=== PATIENT | female | born 1950 | race Caucasian/White ===

== ENCOUNTER 2019-04-19 06:59 | Day surgery (SDC) | payer MEDICARE ==
[2019-04-19] MEDS ORDERED: Lactated Ringers 1,000 ML IV SCH (08:00)
[2019-04-19] MEDS ORDERED: Propofol 200 MG/20 ML SDV ONE (08:03)
[2019-04-19] MEDS ORDERED: fentaNYL 100 MCG/2 ML SDV ONE (08:03)
[2019-04-19] MEDS ORDERED: Midazolam 1 MG/ML 2 ML SDV ONE (08:03)
--- NOTE | 2019-04-19 11:44 | OR ---
DATE OF PROCEDURE: 04/19/2019 PREOPERATIVE DIAGNOSIS: History of tubular adenomas. POSTOPERATIVE DIAGNOSES: Medium sized hepatic flexure polyp, small transverse colon polyp, history of tubular adenomas. PROCEDURE: Colonoscopy to the cecum with snare cautery polypectomy of hepatic flexure polyp and biopsy resection of small transverse colon polyp. ANESTHESIA: IV anesthesia with monitored anesthesia care. INDICATION: This 69-year-old white female is referred for a colonoscopy because of a history of tubular adenoma. She says her last colonoscopic exam was done 6 years ago. I counseled her for the procedure including risks, alternatives, and she gave her informed consent to proceed. DESCRIPTION OF PROCEDURE: The patient was placed in the left lateral decubitus position. IV anesthesia was administered by the Anesthesia Service. Time-out was held. A rectal exam was performed, which was unremarkable. The flexible video Olympus colonoscope was introduced through her anus, up her rectum, and out her colon all the way to the cecum. Once the cecum was reached, the scope was slowly withdrawn examining the mucosa throughout. We saw a small polyp in the transverse colon, which was removed with the biopsy forceps. We thought we saw a polyp at the hepatic flexure, so we went back there and found it. This was little larger. This was removed with the snare that involved placing a snare about its base, elevating it up away from the bowel wall and amputated as electrocautery was applied. The polyp was aspirated through the scope and captured in a polyp trap. The scope was then withdrawn further with no other lesions noted. The scope was retroflexed in the rectum with the distal rectum appearing unremarkable. The scope was straightened and removed. She tolerated the procedure well. Jt Alfaro MD /[id number]
== END 2019-04-19 10:32 | disposition home or self-care (01) ==
LOC: JP.SDS 06:59
PROVIDERS: ATTEND Surgery
DX: Z12.11 Encounter for screening for malignant neoplasm of colon (principal); D12.3 Benign neoplasm of transverse colon; Z86.010 Personal history of colon polyps; E78.5 Hyperlipidemia, unspecified; Z87.891 Personal history of nicotine dependence
CPT/HCPCS: 45380; 45385; J2250; J2704; J3010; J7120; 88305